=== PATIENT | male | born 1995 | race African-American/Black ===

== ENCOUNTER 2017-11-16 08:53 | Emergency (ER) | payer SELFPAY ==
[~2017-11-16] VITALS: Ht 162.6 cm; Wt 65.0 kg
[2017-11-16 13:30] VITALS: BP 102/68
[2017-11-16] MEDS ORDERED: IBUPROFEN 600MG TABLET PO ONE (13:30)
== END 2017-11-16 14:09 | disposition home or self-care (01) ==
LOC: ER 09:49
DX: M25.562 Pain in left knee (principal); M54.5 Low back pain; V13.4XXA Pedal cycle driver injured in collision with car, pick-up truck or van in traffic accident, initial encounter; Y93.55 Activity, bike riding; Y92.410 Unspecified street and highway as the place of occurrence of the external cause; Y99.0 Civilian activity done for income or pay; Z72.0 Tobacco use
CPT/HCPCS: 72100; 73562; 99284

== ENCOUNTER 2018-01-26 14:54 | Emergency (ER) | payer SELFPAY ==
[~2018-01-26] VITALS: Ht 165.1 cm; Wt 68.0 kg
[2018-01-26 20:29] VITALS: BP 127/81
[2018-01-26] MEDS ORDERED: CEFTRIAXONE SODIUM 250 MG/VIAL IM ONE (20:30)
[2018-01-26] MEDS ORDERED: LIDOCAINE HCL 1% 20ML VIAL (Pyxis) INJ INFIL ONE (20:30)
[2018-01-26] MEDS ORDERED: AZITHROMYCIN 500 MG TABLET PO ONE (20:30)
[2018-01-26] MEDS ORDERED: LIDOCAINE HCL/PF 1% 10 MG/ML 5ML VIAL ONE (20:46)
[2018-01-29 15:11] LABS: CHLAMYDIA TRACHOMATIS NAA Negative (Negative); NEISSERIA GONORRHOEAE NAA Positive (Negative)
== END 2018-01-26 20:56 | disposition home or self-care (01) ==
LOC: ER 15:16
DX: Z20.2 Contact with and (suspected) exposure to infections with a predominantly sexual mode of transmission (principal); Z72.51 High risk heterosexual behavior; F17.210 Nicotine dependence, cigarettes, uncomplicated
CPT/HCPCS: 87491; 87591; 96372; 99284; J0696; J3490

== ENCOUNTER 2018-09-09 13:23 | Emergency (ER) | payer SELFPAY ==
[~2018-09-09] VITALS: Ht 165.1 cm; Wt 68.0 kg
[2018-09-09 13:28] VITALS: BP 109/61
[2018-09-09] MEDS ORDERED: AZITHROMYCIN 500 MG TABLET PO ONE (16:30)
[2018-09-09] MEDS ORDERED: CEFTRIAXONE SODIUM 250 MG/VIAL IM ONE (16:30)
[2018-09-09] MEDS ORDERED: LIDOCAINE HCL 1% 20ML VIAL (Pyxis) INJ INFIL ONE (16:30)
[2018-09-09 17:50] LABS: CLARITY URINE CLEAR (CLEAR); COLOR URINE YELLOW (YELLOW); KETONES URINE TRACE (NEGATIVE); LEUKOCYTE ESTERASE URINE 2+ (NEGATIVE); NITRITE URINE NEGATIVE (NEGATIVE); OCCULT BLOOD URINE NEGATIVE (NEGATIVE); PH URINE 5.5 (4.5-8.0); PROTEIN URINE NEGATIVE (NEGATIVE); SPECIFIC GRAVITY URINE 1.026 (1.005-1.030)
== END 2018-09-09 18:21 | disposition home or self-care (01) ==
LOC: ER 13:23
DX: R36.9 Urethral discharge, unspecified (principal); Z20.2 Contact with and (suspected) exposure to infections with a predominantly sexual mode of transmission
CPT/HCPCS: 81003; 96372; 99283; J0696; J3490

== ENCOUNTER 2019-04-12 03:00 | Emergency (ER) | payer SELFPAY ==
[~2019-04-12] VITALS: Ht 162.6 cm; Wt 80.3 kg
[2019-04-12] MEDS ORDERED: AZITHROMYCIN 500 MG TABLET PO SCH (06:45)
[2019-04-12] MEDS ORDERED: CEFTRIAXONE SODIUM 250 MG/VIAL IM ONE (06:45)
[2019-04-12] MEDS ORDERED: LIDOCAINE HCL 1% 20ML VIAL (Pyxis) INJ INFIL ONE (06:45)
[2019-04-12 07:04] VITALS: BP 122/89
== END 2019-04-12 07:55 | disposition left against medical advice (07) ==
LOC: ER 03:00
DX: N34.2 Other urethritis (principal)
CPT/HCPCS: 96372; 99283; J0696; J3490; Z7610

== ENCOUNTER 2019-04-25 04:01 | Emergency (ER) | payer SELFPAY ==
[~2019-04-25] VITALS: Ht 162.6 cm; Wt 73.0 kg
[2019-04-25 04:29] VITALS: BP 143/75
== END 2019-04-25 05:00 | disposition left against medical advice (07) ==
LOC: ER 04:01
DX: Z53.21 Procedure and treatment not carried out due to patient leaving prior to being seen by health care provider (principal)

== ENCOUNTER 2019-04-25 06:41 | Emergency (ER) | payer SELFPAY ==
[~2019-04-25] VITALS: Ht 172.7 cm; Wt 73.0 kg
[2019-04-25] MEDS ORDERED: BACITRACIN ZINC OINT UDPKT TOP ONE (07:00)
[2019-04-25] MEDS ORDERED: KETOROLAC 60MG/2ML VIAL IM ONE (07:00)
[2019-04-25 09:15] VITALS: BP 118/67
== END 2019-04-25 09:35 | disposition home or self-care (01) ==
LOC: ER 06:41
DX: S60.221A Contusion of right hand, initial encounter (principal); S80.211A Abrasion, right knee, initial encounter; F17.210 Nicotine dependence, cigarettes, uncomplicated; Y04.0XXA Assault by unarmed brawl or fight, initial encounter; W03.XXXA Other fall on same level due to collision with another person, initial encounter; Y93.89 Activity, other specified; Y92.89 Other specified places as the place of occurrence of the external cause
CPT/HCPCS: 73130; 96372; 99283; J1885; Z7610

== ENCOUNTER 2019-09-26 12:15 | Emergency (ER) | payer SELFPAY ==
[~2019-09-26] VITALS: Ht 162.6 cm; Wt 70.0 kg
[2019-09-26] MEDS ORDERED: IBUPROFEN 600MG TABLET PO ONE (14:45)
[2019-09-26] MEDS ORDERED: CEFTRIAXONE SODIUM 250 MG/VIAL IM ONE (14:45)
[2019-09-26] MEDS ORDERED: DOXYCYCLINE HYCLATE 100MG CAPSULE PO ONE (14:45)
[2019-09-26 15:40] VITALS: BP 130/72
[2019-09-26 15:42] LABS: CLARITY URINE CLEAR (CLEAR); COLOR URINE YELLOW (YELLOW); KETONES URINE NEGATIVE (NEGATIVE); LEUKOCYTE ESTERASE URINE 3+ (NEGATIVE); NITRITE URINE NEGATIVE (NEGATIVE); OCCULT BLOOD URINE TRACE (NEGATIVE); PROTEIN URINE NEGATIVE (NEGATIVE); SPECIFIC GRAVITY URINE 1.001 (1.005-1.030); UROBILINOGEN URINE 0.2 E.U./dL (0.2-1.0)
[2019-09-29 04:09] LABS: CHLAMYDIA TRACHOMATIS NAA Negative (Negative); NEISSERIA GONORRHOEAE NAA Positive (Negative)
== END 2019-09-26 16:00 | disposition left against medical advice (07) ==
LOC: ER 12:15
DX: Z20.2 Contact with and (suspected) exposure to infections with a predominantly sexual mode of transmission (principal); R30.0 Dysuria; N50.811 Right testicular pain; R36.9 Urethral discharge, unspecified
CPT/HCPCS: 81003; 87086; 87491; 87591; 96372; 99283; J0696

== ENCOUNTER 2022-09-08 14:58 | Emergency (ER) | payer MEDICAID ==
[~2022-09-08] VITALS: Ht 160 cm; Wt 73.0 kg
[2022-09-08 15:04] VITALS: BP 115/86
[2022-09-08] MEDS ORDERED: CEFTRIAXONE SODIUM 500 MG/VIAL IM ONE (16:45)
[2022-09-08] MEDS ORDERED: DOXYCYCLINE HYCLATE 100MG CAPSULE PO ONE (16:45)
[2022-09-08] MEDS ORDERED: DOXY100T2 MT (16:55)
[2022-09-08 17:47] LABS: CLARITY URINE CLEAR (CLEAR); COLOR URINE DARK YELLOW (YELLOW); KETONES URINE 2+ (NEGATIVE); LEUKOCYTE ESTERASE URINE 1+ (NEGATIVE); NITRITE URINE NEGATIVE (NEGATIVE); OCCULT BLOOD URINE NEGATIVE (NEGATIVE); PROTEIN URINE 1+ (NEGATIVE); SPECIFIC GRAVITY URINE 1.034 (1.005-1.030)
[2022-09-11 04:07] LABS: NEISSERIA GONORRHOEAE NAA Positive (Negative)
== END 2022-09-08 17:36 | disposition home or self-care (01) ==
LOC: ER 14:58
DX: A54.01 Gonococcal cystitis and urethritis, unspecified (principal); Z71.89 Other specified counseling
CPT/HCPCS: 81003; 87491; 87591; 96372; 99283; J0696

== ENCOUNTER 2023-12-28 10:28 | Emergency (ER) | payer SELFPAY ==
[~2023-12-28] VITALS: Ht 165.1 cm; Wt 75.0 kg
[~2023-12-28 10:28] MED LIST: DOXY100T2 MT
[2023-12-28 10:40] VITALS: O2SAT 97
[2023-12-28] MEDS ORDERED: KETOROLAC 30MG/ML VIAL IM ONE (12:45)
[2023-12-28] MEDS ORDERED: CYCLOBENZAPRINE 10MG TABLET PO ONE (12:45)
[2023-12-28] MEDS ORDERED: NAPR-1176 MT (12:54)
[2023-12-28] MEDS ORDERED: CYCL10TA21 MT (12:54)
[2023-12-28 13:21] VITALS: BP 113/78; PULSE 80; RESP 15; TEMP 98.4
== END 2023-12-28 13:25 | disposition home or self-care (01) ==
LOC: ER 10:28
DX: R20.0 Anesthesia of skin (principal); M54.50 Low back pain, unspecified; F10.10 Alcohol abuse, uncomplicated; Y90.9 Presence of alcohol in blood, level not specified
CPT/HCPCS: 99283; 96372; J1885

== ENCOUNTER 2024-09-26 10:27 | Emergency (ER) | payer SELFPAY ==
[~2024-09-26] VITALS: Ht 162.6 cm; Wt 73.0 kg
[~2024-09-26 10:27] MED LIST changes: +CYCL10TA21 MT; +NAPR-1176 MT
[2024-09-26 11:00] VITALS: O2SAT 99
[2024-09-26] MEDS: KETOROLAC 15MG/ML VIAL IM ONE (11:56)
[2024-09-26] MEDS ORDERED: NAPR-1176 MT (12:06)
[2024-09-26] MEDS ORDERED: LIDO700A15 TP (12:06)
[2024-09-26 12:48] VITALS: BP 131/89; PULSE 61; RESP 12; TEMP 36.66960; O2SAT 100
== END 2024-09-26 12:50 | disposition home or self-care (01) ==
LOC: ER 10:27
DX: M25.571 Pain in right ankle and joints of right foot (principal); F10.20 Alcohol dependence, uncomplicated
CPT/HCPCS: 99283; 73610; 96372; J1885